=== PATIENT | female | born 1990 | race Caucasian/White ===

== ENCOUNTER 2017-11-21 20:40 | Emergency (ER) | payer OTHER ==
[~2017-11-21] VITALS: Ht 172.7 cm; Wt 56.7 kg
== END 2017-11-21 23:26 | disposition home or self-care (01) ==
LOC: ED 20:40
DX: S16.1XXA Strain of muscle, fascia and tendon at neck level, initial encounter (principal); S39.012A Strain of muscle, fascia and tendon of lower back, initial encounter; F17.200 Nicotine dependence, unspecified, uncomplicated; V49.88XA Car occupant (driver) (passenger) injured in other specified transport accidents, initial encounter; Y92.410 Unspecified street and highway as the place of occurrence of the external cause
CPT/HCPCS: 72100; 72125; 99284

== ENCOUNTER 2020-01-12 19:10 | Emergency (ER) | payer OTHER ==
[~2020-01-12] VITALS: Ht 172.7 cm; Wt 57.1 kg
[2020-01-12] MEDS ORDERED: HYDROXYZINE HCL50 MG PO (19:25)
== END 2020-01-12 21:14 | disposition home or self-care (01) ==
LOC: ED 19:10
DX: J40 Bronchitis, not specified as acute or chronic (principal); F41.9 Anxiety disorder, unspecified; F17.200 Nicotine dependence, unspecified, uncomplicated
CPT/HCPCS: 71046; 80053; 85025; 99285-25

== ENCOUNTER 2020-02-14 17:14 | Emergency (ER) | payer OTHER ==
[~2020-02-14] VITALS: Ht 172.7 cm; Wt 57.1 kg
[~2020-02-14 17:14] MED LIST: HYDROXYZINE HCL50 MG PO
[2020-02-14] MEDS ORDERED: ZOLOFT25 MG PO (17:31)
[2020-02-14] MEDS ORDERED: OMEPRAZOLE20 MG PO (18:31)
== END 2020-02-14 18:35 | disposition home or self-care (01) ==
LOC: ED 17:14
DX: F41.9 Anxiety disorder, unspecified (principal); K21.9 Gastro-esophageal reflux disease without esophagitis; Z87.891 Personal history of nicotine dependence; Z79.899 Other long term (current) drug therapy
CPT/HCPCS: 99283

== ENCOUNTER 2020-03-20 06:25 | Day surgery (SDC) | payer OTHER ==
[~2020-03-20] VITALS: Ht 172.7 cm; Wt 63.5 kg
[~2020-03-20 06:25] MED LIST changes: +OMEPRAZOLE20 MG PO; +ZOLOFT25 MG PO
--- NOTE | 2020-03-20 07:54 | NUR ---
03/20/20 0754 Julia Sanderson 0750 PATIENT ARRIVES TO PACU AWAKE BUT DROWSY, ANSWERS QUESTIONS APPROPRIATELY. RESP EVEN AND UNLABORED, NC AT 2 LITERS, OXYGEN OFF ON ARRIVAL TO PACU.
--- NOTE | 2020-03-21 07:58 | OR ---
[facility] [address] [place], [place] [address] Signed DATE OF OPERATION: 03/20/2020 SURGEON: Ravinder Guidry MD PREOPERATIVE DIAGNOSIS: Esophageal dysphagia. POSTOPERATIVE DIAGNOSES: 1. Unvl-is-ibfkrsqy diffuse gastritis. 2. Small hiatal hernia. PROCEDURE: Esophagogastroduodenoscopy with CLOtest and biopsies of the antrum and GE junction. ESTIMATED BLOOD LOSS: None. INDICATIONS: Serenity is a 30-year-old female, who actually suffers with rather significant agoraphobia. It takes quite a bit for her to just to come from the office into the hospital today. In fact, we have to give her Xanax to help her come to the hospital. She has been working with her primary care provider with a number of different complaints. She has been describing some level of esophageal dysphagia. She tried nystatin swish and swallow and thought maybe it was a little better. She also coughed up fluid, once in a while she sees dark flecks in the fluid. She is worried that something is wrong. She also gave a sputum sample and it grew out Staph. Consequently, she took Bactrim in that regard. She does not seem to have any reflux symptoms. They asked her to come see me for an upper endoscopy. She does not take any medicines currently for stomach. In the office, I gave her a pamphlet on upper endoscopy, and we reviewed the nature of the test along with its risks including, but not limited to gas bloating, crampy abdominal pain, bleeding, perforation requiring surgery, and missed diagnosis. We also discussed the need for IV conscious sedation. She had expressed understanding and wished to proceed. DESCRIPTION OF PROCEDURE: Serenity was taken into the endoscopy suite and placed in a supine semi-recumbent position. She did take one of her Xanax pills before coming to the hospital, even then she is quite nervous. The posterior oropharynx was anesthetized with lidocaine spray. A bite block was utilized for the case. She was given a total of 9 mg of Versed and 100 mcg of fentanyl for the case. Even then she was fighting us throughout the case and Electronically Signed By: RAVINDER GUIDRY MD 03/21/20 0758 PATIENT NAME: SERENITY MENDEZ OPERATIVE REPORT DATE OF : 88 REPORT #: [id number] PHYSICIAN: RAVINDER GUIDRY MD PCP: HELDER BRASWELL PA-C REPORT IS CONFIDENTIAL AND NOT TO BE RELEASED WITHOUT AUTHORIZATION [facility] [address] [place] [id number] Signed wide awake and talking to us soon as we withdrew the scope. It was everything we could do to get the camera in and out with biopsies and pictures and so forth. Consequently, in the future, she would be much better served with monitored anesthesia care and propofol infusion. Nevertheless, we did get a good look at her stomach and duodenum. The duodenum and pyloric channel were unremarkable. The stomach showed diffuse erythematous changes throughout. No ulcerations in the pyloric bulb of the stomach. We took a biopsy of the antrum for pathologic review as well as CLOtest. Upon retroflexion of scope, she does have a small hiatal hernia. The scope was withdrawn up to the area of the GE junction, which was compliant without stricture. She has minimal disruption to the Z-line. There was no Jung's mucosa. No distal esophagitis. We went ahead and took a biopsy along the edge of the Z-line for pathologic review. The middle and upper esophagus were unremarkable. Interestingly enough, we did find some small flecks of blood on the side of the arytenoid just above the vocal cords. After this, the gas was suctioned out and the gastroscope removed. Serenity tolerated the procedure well overall. RECOMMENDATIONS: I will see Serenity back in my office in 7 to 14 days. She needs to consider treatment of her anxiety as she is through [facility]. She might consider using an H2 carson or proton pump inhibitor as well for stomach. Ravinder Guidry MD ALB/MODL /[id number] cc: Ravinder Guidry MD Copies: RAVINDER GUIDRY MD ~ Electronically Signed By: RAVINDER GUIDRY MD 03/21/20 0758 PATIENT NAME: SERENITY MENDEZ OPERATIVE REPORT DATE OF : 88 REPORT #: [id number] PHYSICIAN: RAVINDER GUIDRY MD PCP: HELDER BRASWELL PA-C REPORT IS CONFIDENTIAL AND NOT TO BE RELEASED WITHOUT AUTHORIZATION
--- NOTE | 2020-03-24 11:17 | PATH ---
[facility] [address], [place] [address] Signed SPECIMEN(S): A ANTRUM/PYLORUS SPECIMEN(S): B GE JUNCTION SPECIMEN SOURCE: A. ANTRUM/PYLORUS B. GE JUNCTION CLINICAL HISTORY: Pre: Dysphagia. Post: Small hiatal hernia, gastritis. EGD. MICROSCOPIC DESCRIPTION: Histologic sections of all submitted blocks are examined by light microscopy. These findings, together with the gross examination, support the pathologic diagnosis. FINAL PATHOLOGIC DIAGNOSIS: A. Stomach, antrum, biopsy: - Antral mucosa with no histopathologic abnormality. - Negative for Helicobacter organisms on HE stain. - Negative for dysplasia or malignancy. B. Gastroesophageal junction, biopsy: - Squamous mucosa with changes consistent with reflux esophagitis. - Negative for intestinal metaplasia, dysplasia, or malignancy. NAL:cml:C2NR GROSS DESCRIPTION: Two specimens are received in two containers, labeled "IF." A. The specimen, labeled "IF, antrum biopsy," is received in formalin and consists of one paul soft tissue fragment that measures 0.1 cm in greatest dimension. The specimen is entirely submitted in cassette (A1). B. The specimen, labeled "IF, GE junction biopsy," is received in formalin and consists of one paul soft tissue fragment that measures 0.2 cm in greatest dimension. The specimen is entirely submitted in cassette (B1). JS (under the direct supervision of a pathologist) The Gross Description was prepared using a voice recognition system. The report was reviewed for accuracy; however, sound-alike word errors, addition and/or deletions may occur. If there is any question about this report, please contact Client Services. PERFORMING LABORATORY: PATIENT NAME: BRYAN MENDEZ PATHOLOGY DATE OF : 88 REPORT #: [id number] PHYSICIAN: SHYLA DAMON PCP: HELDER BRASWELL PA-C REPORT IS CONFIDENTIAL AND NOT TO BE RELEASED WITHOUT AUTHORIZATION [facility] [address] [address] Signed The technical component was performed [place] [address] (Engineering Psychologist: Rivka Mobley MD; CLIA# [id number]). Professional interpretation was performed by [facility], [address] [address] (CLIA# [id number]). Diagnostician: Jackelin Kunz MD Pathologist Electronically Signed 03/24/2020 Copies: ~ PATIENT NAME: BRYAN MENDEZ PATHOLOGY DATE OF : 88 REPORT #: [id number] PHYSICIAN: SHYLA DAMON PCP: HELDER BRASWELL PA-C REPORT IS CONFIDENTIAL AND NOT TO BE RELEASED WITHOUT AUTHORIZATION
== END 2020-03-20 08:30 | disposition home or self-care (01) ==
LOC: OPS 06:25 → DS 06:25 → OPS 06:45 → DS 11:15 → OPS 11:15
PROVIDERS: Colon & Rectal Surgery
PROC: 0DB78ZX Excision of Stomach, Pylorus, Via Natural or Artificial Opening Endoscopic, Diagnostic (ICD-10-PCS; 2020-03-20)
PROC: 0DB48ZX Excision of Esophagogastric Junction, Via Natural or Artificial Opening Endoscopic, Diagnostic (ICD-10-PCS; principal; 2020-03-20 06:45)
DX: R13.14 Dysphagia, pharyngoesophageal phase (principal); K44.9 Diaphragmatic hernia without obstruction or gangrene
CPT/HCPCS: 84703; 86677; 88305; 99153; G0500; J2250; J3010; J7121